=== PATIENT | male | born 1940 ===

== ENCOUNTER 2024-09-26 05:22 | Emergency (ER) | payer MEDICARE ==
[2024-09-26 06:02] LABS: PLATELET COUNT,PLT 178 K/uL (130-375); RED BLOOD CELL COUNT 4.61 M/uL (4.14-5.76); WHITE BLOOD CELL COUNT,WBC 28.9 K/uL (3.2-11.0)
[2024-09-26 06:29] LABS: A/G RATIO 1.5 (1.2-2.2); ALANINE AMINOTRANSFERASE,ALT 18 U/L (12-78); ASPARTATE AMNIOTRANSFERASE,AST 17 U/L (15-37); BILIRUBIN TOTAL 0.8 mg/dL (0.2-1.0); BLOOD UREA NITROGEN,BUN 18 mg/dL (7-18); CARBON DIOXIDE,CO2 27 mmol/L (21-32); CHLORIDE,CL 105 mmol/L (100-108); CREATININE 0.7 mg/dL (0.8-1.3); EST CRCL DRUG DOSING (CG) 86.65 mL/min; ESTIMATED GFR 92 mL/min (>60); GLUCOSE RANDOM 123 mg/dL (74-106); POTASSIUM,K 3.4 mmol/L (3.6-5.2); PROTEIN TOTAL,TP 6.6 g/dL (6.4-8.2); SODIUM,NA 141 mmol/L (140-148)
[2024-09-26 06:56] LABS: ATYPICAL LYMPHOCYTES RARE; LYMPHOCYTES ABSOLUTE MAN 18.21 K/uL (0.8-3.3); LYMPHOCYTES PERCENT MAN 63 % (24-44); MONOCYTES ABSOLUTE MAN 0.58 K/uL (0.20-0.90); MONOCYTES PERCENT MAN 2 % (2-6); NEUTROPHILS ABSOLUTE MAN 10.12 K/uL (1.0-7.6); SEG NEUTROPHILS PERCENT MAN 35 % (36-66)
[2024-09-26] MEDS: Ketorolac 30 MG/ML SDV IVPUSH ONE (07:23)
[2024-09-26] MEDS ORDERED: Naloxone 0.4 MG/ML SDV IVPUSH PRN (07:25)
[2024-09-26 10:57] LABS: APPEARANCE,URINE CLEAR (CLEAR); GLUCOSE,URINE NEGATIVE (NEGATIVE); OCCULT BLOOD,URINE TRACE-INTACT (NEGATIVE)
[2024-09-26 11:30] LABS: SQUAMOUS EPITHELIAL CELLS,UR FEW /HPF; UROTHELIAL CELLS,URINE NOT SEEN /HPF
== END 2024-09-26 12:00 | disposition home or self-care (01) ==
LOC: JP.ED 05:22
DX: N20.0 Calculus of kidney (principal); E86.0 Dehydration; Z79.01 Long term (current) use of anticoagulants; Z79.84 Long term (current) use of oral hypoglycemic drugs; Z79.899 Other long term (current) drug therapy
CPT/HCPCS: 36415; 74176; 80053; 81001; 85025; 96361; 96374; 96375; 96376; 99285-25; J1171; J1885; J7030